=== PATIENT | female | born 1955 | race Caucasian/White ===

== ENCOUNTER 2019-01-10 09:18 | Observation (INO) ==
[2019-01-10] MEDS ORDERED: Ipratropium/Albuterol Neb 3 ML IH ONE ×2 (10:00→10:24)
[2019-01-10] MEDS ORDERED: methylPREDNISolone 125 MG/2 ML VIAL IVP ONE (10:01)
--- NOTE | 2019-01-10 10:05 | Emergency Department Note ---
Disposition Clinical Impression: Dyspnea Qualifiers: Dyspnea type: shortness of breath Qualified Code(s): R06.02 - Shortness of breath; R06.00 - Dyspnea, unspecified; R06.01 - Orthopnea Disposition: Still a Patient Referrals: Aruna Begum CNP [Advanced Practice Nurse] - Time of Disposition: 11:42 SOB HPI - General Chief Complaint: ED Shortness of Breath/Dyspnea Stated Complaint: dyspnea Time Seen by Provider: 01/10/19 09:33 Source: patient Limitations: no limitations Nursing Notes Reviewed: Yes Vital Signs Reviewed: Yes - History of Present Illness Ms. Hyde is a 63 yo F with PMH of COPD and OK, presenting emergency department with acute on chronic worsening dyspnea. She reports a 3 month progressively worsening shortness of breath, that has gotten worse over the past 2 days. Over this time. She also complains of worsening chest pressure, radiating to the r ight shoulder and jaw, and generalized fatigue and weakness. Chest pressure and shortness of breath is worse with exertion. She had a fever up to 101 a couple days ago. Associated chills, lightheadedness, orthopnea, productive cough, wheezing, and mild LE edema. She denies vision changes, abdominal pain, nausea, vomiting, diarrhea, dysuria, or hematuria. She reports a one-year history of hematochezia, and has an upcoming colonoscopy for this. She has been told that her symptoms are just worse because she recently moved from [place], and the allergies are worse here. She has been treated for multiple COPD exacerbations without improvement and finished a medrol-dose pack a couple weeks ago. She reports a history of OK, but has never had a heart catheter. Her only cardiac workup includes a Holter monitor. - Related Data Allergies Allergy/AdvReac Type Severity Reaction Status Date / Time codeine Allergy Difficulty Verified 01/10/19 09:20 Breathing Review of Systems: Admits to fever, dyspnea, chest pressure, chills, lightheadedness, orthopnea, productive cough, wheezing, mild LE edema, and hematochezia. Denies vision changes, abdominal pain, nausea, vomiting, diarrhea, dysuria, or hematuria. Past Medical History - Past Medical History Medical history: Reports: COPD, myocardial infarction - Social History Smoking Status: Former smoker Alcohol use: Reports: none Drug use: Reports: none Physical Exam GEN: Mild distress, mild diaphoresis, A&O3 HEAD: Atraumatic, normocephalic EYES: PERRL, sclera white, conjunctiva pink HEART: Regular, tachycardia, normal S1 and S2, no murmurs LUNGS: Diminished bilaterally with poor aeration, inspiratory and expiratory wheezing throughout ABD: Soft, mild epigastric tenderness, nondistended, no guarding or rigidity EXT: Trace LE pitting edema noted, pulses 2/4 NEURO: No focal deficits, cooperative with exam, strength equal and symmetric bilaterally - General Limitations: no limitations General appearance: alert, in no apparent distress Course Vital Signs Temperature 97.9 F 01/10/19 09:19 Pulse Rate 112 01/10/19 09:19 Respiratory Rate 24 01/10/19 09:19 Blood Pressure 140/82 01/10/19 09:19 O2 Sat by Pulse Oximetry 96 01/10/19 09:19 Temperature 97.9 F 01/10/19 09:36 Pulse Rate 108 01/10/19 10:38 Respiratory Rate 22 01/10/19 10:38 Blood Pressure 139/82 01/10/19 10:38 O2 Sat by Pulse Oximetry 99 01/10/19 10:38 Oxygen Delivery Oxygen Delivery Room Air Shortness of Breath/Dyspnea - MDM Narrative Medical decision making narrative: Non-toxic, afebrile, 63 yo female presenting with chest pain and dyspnea. Her symptoms are chronic with acute worsening over the past 2 days. She is tachycardic and tachypnic, but maintaining good oxygen saturation on room air. Clinically appears to COPD exacerbation with diminished lung sounds, poor aera tion, and wheezing. She is given solumedrol and duonebs in the ED with some improvement in symptoms. CXR is without acute findings. EKG without ischemic changes. Troponin negative. CBC, BMP, BNP, and procalcitonin normal. Lactic acid normal at 1.7. D-dimer elevated to 847. CTA chest ordered and pending. Disposition pending. Please see documentation of attending, Dr. Edwin Cisse for final results, treatment, and disposition. - Lab Data Lab results reviewed: Yes I reviewed the patient's lab results. Result diagrams: 01/10/19 10:15 01/10/19 10:15 Lab Results 01/10/19 01/10/19 01/10/19 Range/Units 10:15 10:15 10:15 WBC 7.8 (4.3-11.1) K/mcL RBC 4.31 (3.82-4.97) M/mcL Hgb 13.4 (11.5-15.4) g/dL Hct 39.5 (35.3-44.9) % MCV 91.6 (83.0-100.0) fL MCH 31.1 (28.0-33.3) pg MCHC 33.9 (31.6-35.5) g/dL RDW 13.2 (11.5-14.5) % Plt Count 242 (140-400) K/mcL MPV 10.0 (9.4-12.4) fL Immature Gran % 0.1 (0-4) % Seg Neutrophils % 72.1 % Lymphocytes % 10.1 % Monocytes % 6.7 % Eosinophils % 10.6 % Basophils % 0.4 % Neutrophils # 5.6 (1.6-8.9) K/mcL Lymphocytes # 0.8 (0.6-4.6) K/mcL Monocytes # 0.5 (0.0-1.3) K/mcL Eosinophils # 0.8 H (0.0-0.6) K/mcL Basophils # 0.0 (0.0-0.2) K/mcL D-Dimer (0-500) ng/mLFEU Sodium 141 (136-145) mEq/L Potassium 3.9 (3.5-5.1) mEq/L Chloride 107 (98-107) mEq/L Carbon Dioxide 27 (23-29) mEq/L BUN 8 (8-23) mg/dL Creatinine 0.88 (0.60-1.20) mg/dL Est GFR ( Amer) > 60 (> 60) Est GFR (Non-Af Amer) > 60 (> 60) BUN/Creatinine Ratio 9 (6-26) Glucose 108 H (70-105) mg/dL Calculated Osmolality 291 (280-300) Lactic Acid 1.7 (0.5-2.2) mmol/L Calcium 9.3 (8.6-10.3) mg/dL Troponin I < 0.03 (< 0.04) ng/mL B-Natriuretic Peptide (Less than 100) pg/mL Procalcitonin (0.00-0.15) ng/mL 01/10/19 01/10/19 01/10/19 Range/Units 10:15 10:15 10:15 WBC (4.3-11.1) K/mcL RBC (3.82-4.97) M/mcL Hgb (11.5-15.4) g/dL Hct (35.3-44.9) % MCV (83.0-100.0) fL MCH (28.0-33.3) pg MCHC (31.6-35.5) g/dL RDW (11.5-14.5) % Plt Count (140-400) K/mcL MPV (9.4-12.4) fL Immature Gran % (0-4) % Seg Neutrophils % % Lymphocytes % % Monocytes % % Eosinophils % % Basophils % % Neutrophils # (1.6-8.9) K/mcL Lymphocytes # (0.6-4.6) K/mcL Monocytes # (0.0-1.3) K/mcL Eosinophils # (0.0-0.6) K/mcL Basophils # (0.0-0.2) K/mcL D-Dimer 847 H (0-500) ng/mLFEU Sodium (136-145) mEq/L Potassium (3.5-5.1) mEq/L Chloride (98-107) mEq/L Carbon Dioxide (23-29) mEq/L BUN (8-23) mg/dL Creatinine (0.60-1.20) mg/dL Est GFR ( Amer) (> 60) Est GFR (Non-Af Amer) (> 60) BUN/Creatinine Ratio (6-26) Glucose (70-105) mg/dL Calculated Osmolality (280-300) Lactic Acid (0.5-2.2) mmol/L Calcium (8.6-10.3) mg/dL Troponin I (< 0.04) ng/mL B-Natriuretic Peptide 19 (Less than 100) pg/mL Procalcitonin < 0.02 (0.00-0.15) ng/mL - EKG Data EKG attestation: Yes I reviewed and interpreted this EKG. EKG results narrative: EKG with sinus tachycardia, HR 103, without evidence of ischemic changes Attestation Statement - Attestation Attestation: I, Edwin Cisse, examined this patient and my medical decision-making was reviewed with the SH[employer]/PA/Advanced Practice Nurse/Resident Physician. I agree with the documented findings, disposition and treatment plan as described except to the extent set forth below. 63-year-old female presents emergency Department with concerns of difficulty in breathing. Patient reports symptoms have been present and fluctuating over the past 2 months. She recently moved to [place] from [place] and has been diagnosed multiple times with likely seasonal allergies. Patient is taking multiple courses of antibiotics including azithromycin and Augmentin without improvement in her symptoms. She is currently taking Zyrtec without improvement. She did take a five-day Medrol dosepak which she had mild improvement with however started to decline again after the medication finished. On physical exam the patient is tachycardic, has significant wheezing in the bilateral posterior lung [place]. She has persistent cough that is nonproductive. Reports a fever of 101 two days ago. No history of cancer. Patient previously diagnosed with COPD but has never been hospitalized for this. Patient will be given breathing gustavo atments emergency department as well as IV steroids for likely COPD exacerbation. We will obtain a d-dimer for evaluation of PE. Laboratory evaluation pending at this time. Disposition pending at this time
[2019-01-10] MEDS ORDERED: Albuterol 2.5 MG/3 ML NEBULIZER IH ONE (10:24)
[2019-01-10 10:25] LABS: Basophils % 0.4 %; Eosinophils # 0.8 K/mcL (0.0-0.6); Eosinophils % 10.6 %; Hematocrit 39.5 % (35.3-44.9); Hemoglobin 13.4 g/dL (11.5-15.4); Immature Granulocytes % 0.1 % (0-4); Lymphocytes # 0.8 K/mcL (0.6-4.6); Lymphocytes % 10.1 %; Mean Corpuscular HGB Conc 33.9 g/dL (31.6-35.5); Mean Corpuscular Hemoglobin 31.1 pg (28.0-33.3); Mean Corpuscular Volume 91.6 fL (83.0-100.0); Monocytes # 0.5 K/mcL (0.0-1.3); Monocytes % 6.7 %; Neutrophils # 5.6 K/mcL (1.6-8.9); Platelet Count 242 K/mcL (140-400); Red Blood Count 4.31 M/mcL (3.82-4.97); Red Cell Distribution Width 13.2 % (11.5-14.5); Segmented Neutrophils % 72.1 %; White Blood Count 7.8 K/mcL (4.3-11.1)
[2019-01-10 10:43] LABS: BUN/Creatinine Ratio 9 (6-26); Blood Urea Nitrogen 8 mg/dL (8-23); Calcium 9.3 mg/dL (8.6-10.3); Carbon Dioxide 27 mEq/L (23-29); Chloride 107 mEq/L (98-107); Glucose 108 mg/dL (70-105); Osmolality,Calculated 291 (280-300); Potassium 3.9 mEq/L (3.5-5.1); Sodium 141 mEq/L (136-145); Troponin I < 0.03 ng/mL (< 0.04); eGFR For African Americans > 60 (> 60); eGFR For Non-African Americans > 60 (> 60)
[2019-01-10] MEDS ORDERED: Isovue-370 500 ML BOTTLE IVP ONE (10:50)
[2019-01-10] MEDS ORDERED: Naloxone 0.4 MG/ML INJ IVP PRN (14:08)
[2019-01-10] MEDS ORDERED: Ondansetron 4 MG/2 ML VIAL IVP PRN (14:08)
--- NOTE | 2019-01-10 14:29 | Internal Med History&Physical ---
Date of Encounter: 01/10/19 Time of Encounter: 14:00 Internal Medicine - H&P: HPI Chief complaint: Shortness of breath, cough Admitted From: Home History of present illness: Ms. Hyde is a 63 year old female with history of COPD presented to the ED with SOB. She had recently moved from [place] to [place] about 3 months ago and since then, she had developed gradually worsening SOB associated with cough. She says that she was treated with multiple courses of steroid and antibiotics for the last month or so but her breathing was again worsening over the last 3 days hence decided come to the ED for further evaluation today. It was associated w ith productive cough with yellowish sputum and subjective fever. She also had chest soreness that was aggravated by coughing. She however denies nausea/vomiting, palpitation, lightheadedness, hemoptysis, orthopnea, PND, or leg swelling. No GI/ symptoms. In the ED, he was afebrile and stable blood pressure but HR was elevated at 112. Labwork was unremarkable except for mildly elevated d-dimer of 847. Troponin, WBC, lactic acid, and procalcitonin were normal. EKG showed sinus tachycardia without STT changes concerning for ischemia. QTC was also normal. CTA of the chest did not show any evidence of PE or parenchymal abnormality. Patient was given IV Solu-Medrol, prolonged course of bronchodilator, and will be admitted for further management. Past Med Surg Social Fam HX - Past Medical History Attestation: Yes The following information was validated with the patient. Medical history: COPD, myocardial infarction Additional medical history: mitral valve prolapse - Social History Smoking Status: Former smoker Alcohol use: none Drug use: none - Additional Family History Additional family history: No family history of lung cancer Internal Medicine - H&P: Meds Allergy/AdvReac Type Severity Reaction Status Date / Time codeine Allergy Difficulty Verified 01/10/19 09:20 Breathing All Systems PM: A 10-system review of systems was performed and is negative for pertinent findings except as documented above in the HPI. - Constitutional Vitals: Temp Pulse Resp BP Pulse Ox 97.9 F 118 26 125/75 94 01/10/19 09:36 01/10/19 13:15 01/10/19 13:15 01/10/19 13:15 01/10/19 13:15 Exam: General: Alert and oriented, mild distress but able to speak in full sentences without stopping HEENT:EOMI, pupils equal, round and reactive. Cardiovascular:Normal S1 & S2, No JVD. Pulse regular but tachycardic Lungs: Diminished bilaterally with scattered wheezes Abdomen:Soft, non-tender, no rigidity. Extremities:No deformity or swelling Neurological:Normal cognition and motor skills. Non-focal Skin:Normal color, no rash, no lesions. Pulses:Carotid and radial pulses normal +2. Rest of the physical exam is non contributory Internal Med - H&P Results - Labs CBC & Chem 7: 01/10/19 10:15 01/10/19 10:15 Labs: Short CBC 01/10/19 Range/Units 10:15 WBC 7.8 (4.3-11.1) K/mcL Hgb 13.4 (11.5-15.4) g/dL Hct 39.5 (35.3-44.9) % Plt Count 242 (140-400) K/mcL Neutrophils # 5.6 (1.6-8.9) K/mcL BMP 01/10/19 10:15 Sodium 141 Potassium 3.9 Chloride 107 Carbon Dioxide 27 BUN 8 Creatinine 0.88 Glucose 108 H Calcium 9.3 Cardiac Enzymes 01/10/19 Range/Units 10:15 Troponin I < 0.03 (< 0.04) ng/mL - Impressions ITS Impressions Chest X-Ray 01/10/19 09:43 IMPRESSION: No acute cardiopulmonary disease. D/ / 01/10/2019 10:53:05 [facility] Shi MD [facility] Inter[facility]ting Provider: Stu Shi MD Chest CTA 01/10/19 10:50 IMPRESSION: 1.No evidence of major acute pulmonary embolism or acute pulmonary abnormality. D/ / Franklin Jimenez MD / Franklin Jimenez MD Interpreting Provider: Franklin Jimenez MD - Assessment and Plan (1) COPD exacerbation Current Visit: Yes Status: Acute Assessment and plan: Presented with progressive dyspnea, cough, sputum production with increasing amount and purulence No evidence of PE or pneumonia on CTA chest. started on IV solumedrol and bronchodilators, continue and add macrolide for 5 days (2) Sinus tachycardia Current Visit: Yes Status: Acute Assessment and plan: likely due to the above, no PE on CTA (3) DVT prophylaxis Current Visit: Yes Status: Acute Assessment and plan: Subcutaneous heparin - Time Spent With Patient Total time spent is greater than 50% in coordination of care (as documented) at patient's floor/unit and/or counseling patient: 25 - 35 minutes
[2019-01-10] MEDS: Ipratropium/Albuterol Neb 3 ML IH SCH ×3 (16:00→23:54)
[2019-01-10 16:48] LABS: Adenovirus Not Detected (Not Detect); Bordetella Pertussis Not Detected (Not Detect); Chlamydophila pneumoniae Not Detected (Not Detect); Coronavirus 229E Not Detected (Not Detect); Coronavirus HKU1 Not Detected (Not Detect); Coronavirus NL63 Not Detected (Not Detect); Coronavirus OC43 Not Detected (Not Detect); Human Metapneumovirus Not Detected (Not Detect); Human Rhinovirus/Enterovirus Not Detected (Not Detect); Influenza A Subtype 2009 H1 Not Detected (Not Detect); Influenza A Untypeable Not Detected (Not Detect); Influenza B Not Detected (Not Detect); Mycoplasma pneumoniae Not Detected (Not Detect); Parainfluenza Virus 1 Not Detected (Not Detect); Parainfluenza Virus 2 Not Detected (Not Detect); Parainfluenza Virus 3 Not Detected (Not Detect); Parainfluenza Virus 4 Not Detected (Not Detect); Respiratory Syncytial Virus Not Detected (Not Detect)
[2019-01-10] MEDS: *HR* Heparin 5,000 UNIT/ML VIAL SQ SCH (17:23)
[2019-01-10] MEDS: MethylPREDNISolone 40 MG/ML VIAL IVP SCH (17:23)
[2019-01-10] MEDS: Azithromycin 250 MG TABLET PO SCH (17:23)
[2019-01-10] MEDS: Acetaminophen 325 MG TABLET PO PRN (21:01)
[2019-01-10] MEDS: Menthol 9.1 MG LOZENGE PO PRN (21:02)
[2019-01-11 01:31] LABS: Hematocrit 35.4 % (35.3-44.9); Immature Granulocytes % 0.6 % (0-4); Lymphocytes # 0.6 K/mcL (0.6-4.6); Lymphocytes % 6.3 %; Mean Corpuscular HGB Conc 33.3 g/dL (31.6-35.5); Mean Corpuscular Hemoglobin 31.1 pg (28.0-33.3); Mean Corpuscular Volume 93.2 fL (83.0-100.0); Mean Platelet Volume 10.3 fL (9.4-12.4); Monocytes # 0.2 K/mcL (0.0-1.3); Monocytes % 1.7 %; Neutrophils # 8.1 K/mcL (1.6-8.9); Platelet Count 230 K/mcL (140-400); Red Cell Distribution Width 13.2 % (11.5-14.5); Segmented Neutrophils % 91.4 %; White Blood Count 8.9 K/mcL (4.3-11.1)
[2019-01-11 01:39] LABS: Hemoglobin 11.8 g/dL (11.5-15.4)
[2019-01-11 01:45] LABS: BUN/Creatinine Ratio 15 (6-26); Blood Urea Nitrogen 14 mg/dL (8-23); Calcium 8.8 mg/dL (8.6-10.3); Carbon Dioxide 22 mEq/L (23-29); Chloride 105 mEq/L (98-107); Glucose 237 mg/dL (70-105); Magnesium 2.1 mg/dL (1.6-2.6); Osmolality,Calculated 292 (280-300); Potassium 3.7 mEq/L (3.5-5.1); Sodium 137 mEq/L (136-145); eGFR For African Americans > 60 (> 60); eGFR For Non-African Americans 59 (> 60)
[2019-01-11] MEDS: Ipratropium/Albuterol Neb 3 ML IH SCH ×5 (04:10→19:56)
[2019-01-11] MEDS: *HR* Heparin 5,000 UNIT/ML VIAL SQ SCH ×2 (05:45→17:39)
[2019-01-11] MEDS: Menthol 9.1 MG LOZENGE PO PRN ×3 (05:47→20:10)
[2019-01-11] MEDS: MethylPREDNISolone 40 MG/ML VIAL IVP SCH ×2 (05:48→17:40)
[2019-01-11] MEDS: Azithromycin 250 MG TABLET PO SCH (08:18)
--- NOTE | 2019-01-11 10:28 | Internal Med Progress Note ---
Hospitalist Progress Note - Encounter Date of Encounter: 01/11/19 Time of Encounter: 09:15 - Subjective Interval History: Feels a little better today after the course of treatment yesterday. Tachycardia also improved. Complains of R upper chest/shoulder girdle tenderness on coughing. - Exam Vitals: Temp Pulse Resp BP Pulse Ox 98.2 F 95 18 99/62 94 01/11/19 06:55 01/11/19 06:55 01/11/19 07:39 01/11/19 06:55 01/11/19 07:39 Exam: General: Alert and oriented, mild distress but able to speak in full sentences without stopping Cardiovascular:Normal S1 & S2, No JVD. Pulse regular but tachycardic Lungs: Diminished bilaterally with scattered wheezes Abdomen:Soft, non-tender, no rigidity. Extremities:No deformity or swelling Neurological:Normal cognition and motor skills. Non-focal - Assessment and Plan (1) COPD exacerbation Current Visit: Yes Status: Acute Assessment and Plan: Presented with progressive dyspnea, cough, sputum production with increasing amount and purulence No evidence of PE or pneumonia on CTA chest. reports mild improvement on Solu-Medrol, azithromycin, and bronchodilators, will continue for today anticipate d/c tomorrow (2) Sinus tachycardia Current Visit: Yes Status: Acute Assessment and Plan: likely due to the above, no PE on CTA improving on the current tx for COPD exacerbation, continue to monitor (3) DVT prophylaxis Current Visit: Yes Status: Acute Assessment and Plan: Subcutaneous heparin - Time Spent with Patient Total time spent is greater than 50% in coordination of care (as documented) at patient's floor/unit and/or counseling patient: 25 - 35 minutes Plan of Care Discussed with: patient Internal Medicine: Result - Labs CBC & Chem 7: 01/11/19 00:54 01/11/19 00:54 Labs: Short CBC 01/10/19 01/11/19 Range/Units 10:15 00:54 WBC 7.8 8.9 (4.3-11.1) K/mcL Hgb 13.4 11.8 D (11.5-15.4) g/dL Hct 39.5 35.4 (35.3-44.9) % Plt Count 242 230 (140-400) K/mcL Neutrophils # 5.6 8.1 (1.6-8.9) K/mcL BMP 09/04/19 09/05/19 10:15 00:54 Sodium 141 137 Potassium 3.9 3.7 Chloride 107 105 Carbon Dioxide 27 22 L BUN 8 14 Creatinine 0.88 0.95 Glucose 108 H 237 H Calcium 9.3 8.8 Cardiac Enzymes 01/10/19 01/10/19 Range/Units 10:15 16:05 Troponin I < 0.03 < 0.03 (< 0.04) ng/mL - ABG Interpretation ABG results: PT/INR, D-dimer D-Dimer 847 ng/mLFEU (0-500) H 01/10/19 10:15 - Impressions Impressions Chest X-Ray 01/10/19 09:43 IMPRESSION: No acute cardiopulmonary disease. D/ / 01/10/2019 10:53:05 Stu Shi MD / [facility] Interpreting Provider: Stu Shi MD Chest CTA 01/10/19 10:50 IMPRESSION: 1.No evidence of major acute pulmonary embolism or acute pulmonary abnormality. D/ / Franklin Jimenez MD / Franklin Jimenez MD Interpreting Provider: Franklin Jimenez MD Consult Discharge Plan - Plan Referrals: Aruna Begum, XIOMY [Primary Care Provider] - 01/23/19 10:30 am
[2019-01-11] MEDS: Budesonide/Formoterol 160/4.5 1 PUFF INH IH SCH ×2 (11:28→19:59)
--- NOTE | 2019-01-11 11:40 | Electrocardiograph Report ---
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
[2019-01-11] MEDS: Acetaminophen 325 MG TABLET PO PRN (14:50)
[2019-01-12] MEDS: Ipratropium/Albuterol Neb 3 ML IH SCH ×3 (00:04→07:18)
[2019-01-12] MEDS: MethylPREDNISolone 40 MG/ML VIAL IVP SCH (05:29)
[2019-01-12] MEDS: *HR* Heparin 5,000 UNIT/ML VIAL SQ SCH (05:31)
[2019-01-12] MEDS: Budesonide/Formoterol 160/4.5 1 PUFF INH IH SCH (07:18)
[2019-01-12 07:38] VITALS: BP 138/66
[2019-01-12] MEDS: Azithromycin 250 MG TABLET PO SCH (08:14)
--- NOTE | 2019-01-12 08:53 | Discharge Summary ---
- NOTES TO OUTPATIENT PROVIDER Notes to Outpatient Provider: Follow-up with pulmonology and allergy/immunology as outpatient Date of Encounter: 01/12/19 Time of Encounter: 07:15 - Discharge Diagnosis (1) COPD exacerbation Priority: Primary Status: Acute (2) Sinus tachycardia Priority: Secondary Status: Acute (3) DVT prophylaxis Priority: Secondary Status: Acute Hospital course: Ms. Hyde is a 63 year old female with history of COPD who was admitted for COPD exacerbation after failing outpatient therapy. No evidence of PE or pneumonia on CTA chest. Patient was not hypoxic but was in sinus tachycardia and moderate respiratory distress upon presentation. Clinically improved after 3 days of azithromycin, steroid, and bronchodilators. There is a question on whether her symptoms are driven by allergy (as it started after she moved to [place] from [place]) and she will be referred to both pulmonology and immunology as outpatient. Started on Symbicort inhaler. Discharge discussed with: patient, nurse, case management - Time Spent with Patient Total time spent providing and/or coordinating discharge services: 29 mins - Discharge Medications Prescriptions: New predniSONE [PredniSONE] 40 mg PO DAILY #9 tablet GuaiFENesin/Dextromethorphan [Robitussin/Dm] 5 ml PO Q4HR PRN #60 udc PRN Reason: Cough Budesonide/Formoterol 160/4.5 [Symbicort 160/4.5] 2 puff IH BIDR #1 inh Azithromycin [Zithromax] 500 mg PO DAILY 2 Days #4 tablet Continued Albuterol Sulfate [Proair Hfa] 2 puff IH Q4-6H PRN PRN Reason: Shortness Of Breath Discontinued Ipratropium/Albuterol Sulfate [Iprat-Albut 0.5-3(2.5) mg/3 ml] 3 ml IH QID PRN PRN Reason: Shortness Of Breath Home Medications: Albuterol Sulfate [Proair Hfa] 2 puff IH Q4-6H PRN 01/10/19 [History] Azithromycin [Zithromax] 500 mg PO DAILY 2 Days #4 tablet 01/12/19 [Rx] Budesonide/Formoterol 160/4.5 [Symbicort 160/4.5] 2 puff IH BIDR #1 inh 01/12/19 [Rx] GuaiFENesin/Dextromethorphan [Robitussin/Dm] 5 ml PO Q4HR PRN #60 udc 01/12/19 [Rx] predniSONE [PredniSONE] 40 mg PO DAILY #9 tablet 01/12/19 [Rx] Allergies/Adverse Reactions: Allergy/AdvReac Type Severity Reaction Status Date / Time codeine Allergy Difficulty Verified 01/10/19 09:20 Breathing Procaine [From Novocain] Allergy Anaphylaxis Verified 01/10/19 20:21 Date of admission: 01/10/19 14:24 Primary care physician: Aruna Begum CNP Consults: 01/11/19 07:11 Consult to Nurse Navigator [CONS] Routine Comment: COPD - Constitutional Vitals: Temp Pulse Resp BP Pulse Ox 97.8 F 110 16 138/66 92 01/12/19 07:35 01/12/19 07:35 01/12/19 07:35 01/12/19 07:35 01/12/19 07:35 Exam: General: Alert and oriented, not in distress Cardiovascular:Normal S1 & S2, No JVD. Pulse regular and normal rate Lungs: Fair air entry, minimal end expiratory wheezes. Abdomen:Soft, non-tender, no rigidity. Extremities:No deformity or swelling Neurological:Normal cognition and motor skills. Non-focal - Patient Status Disposition: Home, Self-Care Functional capacity at discharge: independent ambulation Overall status at discharge: patient is progressing back to baseline - Discharge Instructions Instructions: Chronic Obstructive Pulmonary Disease (DC) Follow Up With: [facility] [Provider Group] [facility] [Provider Group] (Office will call with appointment) Anastasiia Sanchez CNP [Advanced Practice Nurse] - 01/16/19 1:00 pm (Please bring a list of your home medications including any over the counter medications, a valid ID, and insurance card to your appointment. Please arrive 15 min early to fill out new patient packet. ) - Diet and Activity Activity: resume usual activities as tolerated Diet: regular diet
== END 2019-01-12 10:45 | disposition home or self-care (01) ==
LOC: EMEROOARM 09:18 → 3BNU 09:18 → SUATTDRO 14:24 → 3BNU 15:16
PROVIDERS: ADMIT Internal Medicine; ATTEND Internal Medicine

== ENCOUNTER 2019-06-24 17:54 | Observation (INO) ==
[2019-06-24] MEDS ORDERED: Isovue-370 500 ML BOTTLE IVP ONE (18:13)
[2019-06-24] MEDS ORDERED: Ipratropium/Albuterol Neb 3 ML IH ONE (18:13)
[2019-06-24 18:48] LABS: Basophils # 0.1 K/mcL (0.0-0.2); Basophils % 0.8 %; Eosinophils # 0.8 K/mcL (0.0-0.6); Eosinophils % 10.4 %; Hematocrit 40.5 % (35.3-44.9); Hemoglobin 14.1 g/dL (11.5-15.4); Immature Granulocytes % 0.3 % (0-4); Immature Platelets 2.7 % (1.1-6.1); Lymphocytes # 1.3 K/mcL (0.6-4.6); Lymphocytes % 16.6 %; Mean Corpuscular HGB Conc 34.8 g/dL (31.6-35.5); Mean Corpuscular Hemoglobin 31.4 pg (28.0-33.3); Mean Corpuscular Volume 90.2 fL (83.0-100.0); Mean Platelet Volume 9.7 fL (9.4-12.4); Monocytes # 0.6 K/mcL (0.0-1.3); Monocytes % 7.5 %; Platelet Count 247 K/mcL (140-400); Red Blood Count 4.49 M/mcL (3.82-4.97); Red Cell Distribution Width 12.8 % (11.5-14.5); Segmented Neutrophils % 64.4 %; White Blood Count 7.7 K/mcL (4.3-11.1)
[2019-06-24 19:13] LABS: Alanine Aminotransferase 13 Units/L (7-52); Albumin 4.4 g/dL (3.5-5.7); Albumin/Globulin Ratio 1.8 (1.1-2.2); Alkaline Phosphatase 71 Units/L (34-104); Aspartate Amino Transferase 12 Units/L (13-39); BUN/Creatinine Ratio 14 (6-26); Bilirubin,Total 0.6 mg/dL (0.3-1.0); Blood Urea Nitrogen 11 mg/dL (8-23); Calcium 9.6 mg/dL (8.6-10.3); Carbon Dioxide 27 mEq/L (23-29); Chloride 106 mEq/L (98-107); Globulin 2.5 g/dL (2.4-3.5); Glucose 106 mg/dL (70-105); Osmolality,Calculated 290 (280-300); Sodium 140 mEq/L (136-145); Total Protein 6.9 g/dL (6.4-8.9); Troponin I < 0.03 ng/mL (< 0.04); eGFR For African Americans > 60 (> 60); eGFR For Non-African Americans > 60 (> 60)
[2019-06-24] MEDS ORDERED: 0.9 % Sodium Chloride 1,000 ML IVC ONE (20:13)
[2019-06-24] MEDS ORDERED: *HR* Enoxaparin 80 MG/0.8 ML SYRINGE SQ STA (20:13)
[2019-06-24] MEDS ORDERED: Ondansetron 4 MG/2 ML VIAL IVP PRN (22:48)
[2019-06-24] MEDS ORDERED: Naloxone 0.4 MG/ML INJ IVP PRN (22:48)
[2019-06-24] MEDS ORDERED: Azithromycin 500 MG in 0.9 % Sodium Chloride 250 ML IVPB SCH (23:00)
[2019-06-24] MEDS: MethylPREDNISolone 40 MG/ML VIAL IVP SCH (23:35)
[2019-06-25] MEDS: Ipratropium/Albuterol Neb 3 ML IH SCH ×3 (00:08→07:28)
[2019-06-25] MEDS ORDERED: *HR* LORazepam 2 MG/ML VIAL IVP PRN (00:16)
[2019-06-25] MEDS: Acetaminophen 325 MG TABLET PO PRN ×2 (01:03→11:38)
[2019-06-25 01:19] LABS: Adenovirus Not Detected (Not Detect); Bordetella Pertussis Not Detected (Not Detect); Chlamydophila pneumoniae Not Detected (Not Detect); Coronavirus 229E Not Detected (Not Detect); Coronavirus HKU1 Not Detected (Not Detect); Coronavirus NL63 Not Detected (Not Detect); Coronavirus OC43 Not Detected (Not Detect); Human Metapneumovirus Not Detected (Not Detect); Human Rhinovirus/Enterovirus Not Detected (Not Detect); Influenza A Subtype 2009 H1 Not Detected (Not Detect); Influenza B Not Detected (Not Detect); Mycoplasma pneumoniae Not Detected (Not Detect); Parainfluenza Virus 1 Not Detected (Not Detect); Parainfluenza Virus 2 Not Detected (Not Detect); Parainfluenza Virus 3 Not Detected (Not Detect); Parainfluenza Virus 4 Not Detected (Not Detect); Respiratory Syncytial Virus Not Detected (Not Detect)
[2019-06-25 05:01] LABS: Basophils % 0.3 %; Eosinophils # 0.1 K/mcL (0.0-0.6); Eosinophils % 0.8 %; Hematocrit 37.4 % (35.3-44.9); Immature Granulocytes % 0.3 % (0-4); Lymphocytes # 0.3 K/mcL (0.6-4.6); Mean Corpuscular HGB Conc 34.8 g/dL (31.6-35.5); Mean Corpuscular Hemoglobin 31.6 pg (28.0-33.3); Mean Corpuscular Volume 90.8 fL (83.0-100.0); Mean Platelet Volume 9.9 fL (9.4-12.4); Monocytes # 0.1 K/mcL (0.0-1.3); Monocytes % 0.8 %; Neutrophils # 6.2 K/mcL (1.6-8.9); Platelet Count 237 K/mcL (140-400); Red Blood Count 4.12 M/mcL (3.82-4.97); Segmented Neutrophils % 92.8 %; White Blood Count 6.6 K/mcL (4.3-11.1)
[2019-06-25 05:04] LABS: INR 1.1; Prothrombin Time 12.5 Seconds (9.4-12.1)
[2019-06-25 05:20] LABS: BUN/Creatinine Ratio 12 (6-26); Blood Urea Nitrogen 9 mg/dL (8-23); Carbon Dioxide 25 mEq/L (23-29); Chloride 108 mEq/L (98-107); Chol/HDL Ratio 3.6 (0-4.9); Cholesterol 225 mg/dL (< 200); Glucose 161 mg/dL (70-105); HDL Cholesterol 62 mg/dL (40-59); LDL Cholesterol,Calculated 145 mg/dL (0-99); Magnesium 2.2 mg/dL (1.6-2.6); Osmolality,Calculated 288 (280-300); Phosphorous 2.9 mg/dL (2.7-4.5); Sodium 138 mEq/L (136-145); Triglycerides 92 mg/dL (< 150); eGFR For African Americans > 60 (> 60); eGFR For Non-African Americans > 60 (> 60)
[2019-06-25] MEDS ORDERED: *HR* Heparin 5,000 UNIT/ML VIAL SQ SCH (06:00)
[2019-06-25] MEDS: MethylPREDNISolone 40 MG/ML VIAL IVP SCH (08:45)
[2019-06-25] MEDS ORDERED: *HR* Enoxaparin 80 MG/0.8 ML SYRINGE SQ SCH (09:00)
[2019-06-25] MEDS ORDERED: Fluticasone Propionate Nasal 50 MCG/SPRAY BOTTLE NS SCH (09:00)
[2019-06-25] MEDS ORDERED: Isovue-370 500 ML BOTTLE IVP ONE (09:24)
[2019-06-25] MEDS ORDERED: Levalbuterol Neb 1.25 MG/3 ML IH SCH (10:00)
[2019-06-25] MEDS ORDERED: Budesonide/Formoterol 160/4.5 1 PUFF INH IH SCH (10:00)
[2019-06-25 11:18] VITALS: BP 122/79
[2019-06-25] MEDS ORDERED: MethylPREDNISolone 40 MG/ML VIAL IVP SCH (18:00)
== END 2019-06-25 13:11 | disposition home or self-care (01) ==
LOC: 3BNU 17:54 → EMEROOARM 17:54 → SUATTDRO 21:11 → 3BNU 21:43
PROVIDERS: ADMIT Internal Medicine; ATTEND Internal Medicine

== ENCOUNTER 2019-09-30 18:43 | Inpatient (IN) ==
[2019-09-30] MEDS ORDERED: *HR* LORazepam 2 MG/ML VIAL IVP ONE ×2 (19:19→21:18)
[2019-09-30 19:26] LABS: Basophils % 0.4 %; Eosinophils # 1.3 K/mcL (0.0-0.6); Hematocrit 40.9 % (35.3-44.9); Hemoglobin 13.6 g/dL (11.5-15.4); Immature Granulocytes % 0.1 % (0-4); Lymphocytes # 1.2 K/mcL (0.6-4.6); Mean Corpuscular HGB Conc 33.3 g/dL (31.6-35.5); Mean Corpuscular Hemoglobin 30.8 pg (28.0-33.3); Mean Corpuscular Volume 92.5 fL (83.0-100.0); Monocytes # 0.6 K/mcL (0.0-1.3); Monocytes % 8.9 %; Neutrophils # 3.8 K/mcL (1.6-8.9); Platelet Count 257 K/mcL (140-400); Red Blood Count 4.42 M/mcL (3.82-4.97); Red Cell Distribution Width 13.2 % (11.5-14.5); Segmented Neutrophils % 54.6 %; White Blood Count 6.9 K/mcL (4.3-11.1)
[2019-09-30 19:35] LABS: Activated Partial Thrombo Time 31.9 Seconds (26.0-36.0)
[2019-09-30 19:50] LABS: Alanine Aminotransferase 16 Units/L (7-52); Albumin 4.5 g/dL (3.5-5.7); Alkaline Phosphatase 73 Units/L (34-104); Aspartate Amino Transferase 14 Units/L (13-39); BUN/Creatinine Ratio 9 (6-26); Bilirubin,Total 0.6 mg/dL (0.3-1.0); Blood Urea Nitrogen 8 mg/dL (8-23); Calcium 9.7 mg/dL (8.6-10.3); Carbon Dioxide 27 mEq/L (23-29); Chloride 106 mEq/L (98-107); Globulin 2.2 g/dL (2.4-3.5); Glucose 115 mg/dL (70-105); Osmolality,Calculated 291 (280-300); Potassium 3.9 mEq/L (3.5-5.1); Sodium 141 mEq/L (136-145); Total Protein 6.7 g/dL (6.4-8.9); Troponin I < 0.03 ng/mL (< 0.04); eGFR For African Americans > 60 (> 60); eGFR For Non-African Americans > 60 (> 60)
[2019-09-30] MEDS ORDERED: Ondansetron 4 MG/2 ML VIAL IVP ONE (21:19)
[2019-09-30] MEDS ORDERED: *HR* Metoprolol 5 MG/5 ML VIAL IVP ONE (22:02)
[2019-09-30] MEDS ORDERED: Isovue-370 500 ML BOTTLE IVP ONE (22:16)
[2019-09-30] MEDS ORDERED: Ipratropium/Albuterol Neb 3 ML IH ONE (23:43)
[2019-09-30] MEDS ORDERED: Azithromycin 500 MG in 0.9 % Sodium Chloride 250 ML IVPB ONE (23:51)
[2019-10-01] MEDS ORDERED: Ipratropium/Albuterol Neb 3 ML ONE (00:04)
[2019-10-01] MEDS ORDERED: Naloxone 0.4 MG/ML INJ IVP PRN (00:16)
[2019-10-01] MEDS ORDERED: Ondansetron 4 MG/2 ML VIAL IVP PRN (00:16)
[2019-10-01] MEDS ORDERED: methylPREDNISolone 125 MG/2 ML VIAL IVP ONE (00:19)
[2019-10-01 01:49] LABS: ABG Base Excess -1 mEq/L (-2 to 3); ABG HCO3 26 mEq/L (21-27); ABG Oxygen Saturation 99 % (95-98); ABG PCO2 53 mmHg (35-45); ABG PO2 137 mmHg (85-104); ABG TCO2 28 mEq/L (20-26); Blood Gas Modality BiLevel
[2019-10-01] MEDS ORDERED: 0.9 % Sodium Chloride 1,000 ML IVC SCH (03:45)
[2019-10-01] MEDS: Ipratropium/Albuterol Neb 3 ML IH SCH ×6 (04:20→23:55)
[2019-10-01] MEDS: *HR* Enoxaparin 40 MG/0.4 ML SYRINGE SQ SCH (05:36)
[2019-10-01 08:00] LABS: BUN/Creatinine Ratio 13 (6-26); Blood Urea Nitrogen 10 mg/dL (8-23); Calcium 8.9 mg/dL (8.6-10.3); Carbon Dioxide 25 mEq/L (23-29); Chloride 109 mEq/L (98-107); Glucose 162 mg/dL (70-105); Magnesium 2.4 mg/dL (1.6-2.6); Osmolality,Calculated 291 (280-300); Phosphorous 3.5 mg/dL (2.7-4.5); Potassium 4.2 mEq/L (3.5-5.1); Sodium 139 mEq/L (136-145); eGFR For African Americans > 60 (> 60); eGFR For Non-African Americans > 60 (> 60)
[2019-10-01 08:01] LABS: Basophils % 0.1 %; Eosinophils % 0.3 %; Hemoglobin 12.4 g/dL (11.5-15.4); Immature Granulocytes % 0.4 % (0-4); Lymphocytes # 0.3 K/mcL (0.6-4.6); Lymphocytes % 3.7 %; Mean Corpuscular HGB Conc 32.6 g/dL (31.6-35.5); Mean Corpuscular Hemoglobin 30.6 pg (28.0-33.3); Mean Corpuscular Volume 93.8 fL (83.0-100.0); Mean Platelet Volume 9.9 fL (9.4-12.4); Monocytes % 0.4 %; Platelet Count 219 K/mcL (140-400); Red Blood Count 4.05 M/mcL (3.82-4.97); Red Cell Distribution Width 13.1 % (11.5-14.5); Segmented Neutrophils % 95.1 %; White Blood Count 7.4 K/mcL (4.3-11.1)
[2019-10-01] MEDS: MethylPREDNISolone 40 MG/ML VIAL IVP SCH ×3 (08:54→23:57)
[2019-10-01] MEDS ORDERED: Azithromycin 250 MG TABLET PO SCH (09:00)
[2019-10-01] MEDS ORDERED: Budesonide/Formoterol 160/4.5 1 PUFF INH IH SCH (10:00)
[2019-10-01] MEDS ORDERED: Loratadine 10 MG TABLET PO PRN (11:18)
[2019-10-01 15:58] LABS: Adenovirus Not Detected (Not Detect); Bordetella Pertussis Not Detected (Not Detect); Chlamydophila pneumoniae Not Detected (Not Detect); Coronavirus 229E Not Detected (Not Detect); Coronavirus HKU1 Not Detected (Not Detect); Coronavirus NL63 Not Detected (Not Detect); Coronavirus OC43 Not Detected (Not Detect); Human Metapneumovirus Not Detected (Not Detect); Human Rhinovirus/Enterovirus Not Detected (Not Detect); Influenza A Subtype 2009 H1 Not Detected (Not Detect); Influenza B Not Detected (Not Detect); Mycoplasma pneumoniae Not Detected (Not Detect); Parainfluenza Virus 1 Not Detected (Not Detect); Parainfluenza Virus 2 Not Detected (Not Detect); Parainfluenza Virus 3 Not Detected (Not Detect); Parainfluenza Virus 4 Not Detected (Not Detect); Respiratory Syncytial Virus Not Detected (Not Detect)
[2019-10-01] MEDS ORDERED: *HR* LORazepam 2 MG/ML VIAL IVP ONE (16:08)
[2019-10-01] MEDS: Azithromycin 500 MG in 0.9 % Sodium Chloride 250 ML IVPB SCH (18:01)
[2019-10-01] MEDS: Budesonide/Formoterol 160/4.5 1 PUFF INH IH SCH (19:58)
[2019-10-01] MEDS: Fluticasone Propionate Nasal 50 MCG/SPRAY BOTTLE NS SCH (20:23)
[2019-10-02] MEDS: Ipratropium/Albuterol Neb 3 ML IH SCH ×2 (04:00→07:39)
[2019-10-02] MEDS: *HR* Enoxaparin 40 MG/0.4 ML SYRINGE SQ SCH (05:40)
[2019-10-02] MEDS: Budesonide/Formoterol 160/4.5 1 PUFF INH IH SCH ×2 (07:39→20:31)
[2019-10-02] MEDS: MethylPREDNISolone 40 MG/ML VIAL IVP SCH ×3 (07:45→20:01)
[2019-10-02] MEDS: Fluticasone Propionate Nasal 50 MCG/SPRAY BOTTLE NS SCH ×2 (07:47→20:01)
[2019-10-02] MEDS: Levalbuterol Neb 0.63 MG/3 ML IH SCH ×3 (11:30→20:30)
[2019-10-02] MEDS: *HR* LORazepam 1 MG TABLET PO SCH ×4 (11:42→22:58)
[2019-10-02] MEDS: Azithromycin 500 MG in 0.9 % Sodium Chloride 250 ML IVPB SCH (17:47)
[2019-10-02] MEDS ORDERED: Menthol 9.1 MG LOZENGE PO PRN (19:22)
[2019-10-03 00:56] LABS: Basophils % 0.1 %; Hemoglobin 11.1 g/dL (11.5-15.4); Immature Granulocytes % 1.1 % (0-4); Lymphocytes # 0.5 K/mcL (0.6-4.6); Lymphocytes % 4.5 %; Mean Corpuscular HGB Conc 32.6 g/dL (31.6-35.5); Mean Corpuscular Hemoglobin 31.2 pg (28.0-33.3); Mean Corpuscular Volume 95.5 fL (83.0-100.0); Mean Platelet Volume 10.1 fL (9.4-12.4); Monocytes # 0.4 K/mcL (0.0-1.3); Monocytes % 3.4 %; Neutrophils # 10.8 K/mcL (1.6-8.9); Platelet Count 204 K/mcL (140-400); Red Blood Count 3.56 M/mcL (3.82-4.97); Red Cell Distribution Width 13.5 % (11.5-14.5); Segmented Neutrophils % 90.9 %
[2019-10-03 00:58] LABS: White Blood Count 11.9 K/mcL (4.3-11.1)
[2019-10-03 01:14] LABS: BUN/Creatinine Ratio 22 (6-26); Blood Urea Nitrogen 17 mg/dL (8-23); Calcium 8.9 mg/dL (8.6-10.3); Carbon Dioxide 26 mEq/L (23-29); Chloride 108 mEq/L (98-107); Glucose 161 mg/dL (70-105); Magnesium 2.4 mg/dL (1.6-2.6); Osmolality,Calculated 293 (280-300); Potassium 4.1 mEq/L (3.5-5.1); Sodium 139 mEq/L (136-145); eGFR For African Americans > 60 (> 60); eGFR For Non-African Americans > 60 (> 60)
[2019-10-03] MEDS: Levalbuterol Neb 0.63 MG/3 ML IH SCH (03:44)
[2019-10-03] MEDS: *HR* Enoxaparin 40 MG/0.4 ML SYRINGE SQ SCH (05:10)
[2019-10-03] MEDS: *HR* LORazepam 1 MG TABLET PO SCH (07:23)
[2019-10-03] MEDS: Fluticasone Propionate Nasal 50 MCG/SPRAY BOTTLE NS SCH ×2 (07:24→21:14)
[2019-10-03] MEDS: MethylPREDNISolone 40 MG/ML VIAL IVP SCH ×2 (07:24→21:14)
[2019-10-03] MEDS ORDERED: Benzonatate 100 MG CAPSULE PO PRN (08:53)
[2019-10-03] MEDS ORDERED: Ipratropium/Albuterol Neb 3 ML IH PRN (08:54)
[2019-10-03] MEDS: Ipratropium/Albuterol Neb 3 ML IH SCH ×3 (09:54→22:17)
[2019-10-03] MEDS: Budesonide/Formoterol 160/4.5 1 PUFF INH IH SCH ×2 (09:54→22:17)
[2019-10-03] MEDS: Loratadine 10 MG TABLET PO SCH (11:24)
[2019-10-03] MEDS ORDERED: *HR* LORazepam 1 MG TABLET PO PRN (12:00)
[2019-10-03] MEDS: Azithromycin 500 MG in 0.9 % Sodium Chloride 250 ML IVPB SCH (17:05)
[2019-10-04] MEDS: Ipratropium/Albuterol Neb 3 ML IH SCH (04:28)
[2019-10-04] MEDS: *HR* Enoxaparin 40 MG/0.4 ML SYRINGE SQ SCH (06:11)
[2019-10-04 06:44] VITALS: BP 114/75
[2019-10-04] MEDS: Fluticasone Propionate Nasal 50 MCG/SPRAY BOTTLE NS SCH (07:39)
[2019-10-04] MEDS: Loratadine 10 MG TABLET PO SCH (07:39)
[2019-10-04] MEDS: MethylPREDNISolone 40 MG/ML VIAL IVP SCH (07:39)
[2019-10-04] MEDS ORDERED: Azithromycin 250 MG TABLET PO SCH ×2 (10:30→18:00)
== END 2019-10-04 11:00 | disposition home or self-care (01) | DRG 140 ==
LOC: 2ANU 18:43 → EMEROOARM 18:43 → SUATTDRO 10-01 01:01 → 2ANU 10-01 01:27 → SUATTDRO 10-01 13:33
PROVIDERS: ADMIT Student in an Organized Health Care Education/Training Program; ATTEND Internal Medicine